=== PATIENT | male | born 1995 | race Two or more races ===

== ENCOUNTER → 2019-11-25 | Emergency (ER) | payer SELFPAY ==
--- NOTE | 2019-11-25 04:18 | NUR ---
ED Nurse Note: Patient brought into ED for unknown reasons, as soon as patient was outside of ambulance doors, he stated that he was fine and he did not want to be seen by a MD. patient is alert and oriented x4, ambulatory with a steady gait. unable to take vital signs and triage.
--- NOTE | 2019-11-27 21:42 | Emergency Room Report ---
Medical Decision Making Diagnostic Impression: Primary Impression: Patient left without being seen ER Course patient left ED from ambulance without being seen Status: improved Disposition: LEFT W/OUT BEING SEEN Condition: Unknown Referrals: NOT CHOSEN IPA/,REFERRING (PCP) Dez Mehta MD Nov 27, 2019 21:42
== END | disposition left against medical advice (07) ==
LOC: EDBD 04:11 → EMR 04:12
DX: Z53.21 Procedure and treatment not carried out due to patient leaving prior to being seen by health care provider (principal)